=== PATIENT | male | born 1945 | race Caucasian/White ===

== ENCOUNTER 2021-05-19 10:48 | Emergency (ER) | payer MEDICARE ==
--- NOTE | 2021-05-19 11:34 | ED Physician Documentation ---
History of Present Illness - Stated complaint Stated Complaint: LT SHOULDER INJ - Chief complaint Chief Complaint: Ext Problem - History obtained from History obtained from: Patient - History of Present Illness Timing: Today Pain level max: 8 Pain level now: 5 - Additonal information Additional information: Patient is a 76-year-old male who states he has chronic left-sided shoulder pain and rotator cuff "tendinitis". He states that over the past few days has become worse and states this morning when he tried to put on his shirt his left shoulder pain increased. He states the pain also radiated towards the left neck. No chest pain. No shortness of breath. Worse with movement, better with rest. Denies any injury. Review of Systems Constitutional: denies: Fever, Chills GI: denies: Vomiting, Diarrhea Skin: denies: Rash Musculoskeletal: denies: Neck pain, Back pain Neurologic: denies: Headache PD PAST MEDICAL HISTORY - Past Medical History Cardiovascular: None, Other (no history of irregular rhythm, CHF, SC) Respiratory: COPD Endocrine/Autoimmune: None HEENT: Chronic hearing loss Musculoskeletal: Osteoarthritis Derm: Herpes zoster, Psoriasis - Past Surgical History Past Surgical History: No - Present Medications Home Medications: Ambulatory Orders Medication Instructions Recorded Confirmed Aspirin EC [Ecotrin] 81 mg PO DAILY 05/19/21 05/19/21 HYDROcod/ACETAM 5/325 [Jefferson 5/325] 1 ea PO Q6H PRN #14 tablet 05/19/21 - Allergies Allergies/Adverse Reactions: Allergies Allergy/AdvReac Type Severity Reaction Status Date / Time No Known Drug Allergies Allergy Verified 05/19/21 11:32 - Social History Does the pt smoke?: No Smoking Status: Never smoker Does the pt drink ETOH?: Yes Does the pt have substance abuse?: No PD ED PE NORMAL - Vitals Vital signs reviewed: Yes - General General: Alert and oriented X 3, No acute distress - HEENT HEENT: Atraumatic, PERRL, Moist mucous membranes - Neck Neck: Supple, no meningeal sign, No bony TTP, No JVD, No bruit - Cardiac Cardiac: RRR - Respiratory Respiratory: No respiratory distress, Clear bilaterally - Abdomen Abdomen: Soft, Non tender, Non distended - Back Back: No spinal TTP - Derm Derm: Warm and dry - Extremities Extremities: Other (Tender to palpation over the left shoulder, limited range of motion secondary to pain, has about 80% of his normal range of motion. Neurovascularly intact. 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, No motor deficit, No sensory deficit, Normal speech Eye Opening: Spontaneous Motor: Obeys Commands Verbal: Oriented GCS Score: 15 - Psych Psych: Normal mood, Normal affect Results - Vitals Vitals: Vital Signs - 24 hr 05/19/21 05/19/21 05/19/21 10:58 11:24 11:43 Temperature 36.4 C L 36.6 C Heart Rate 140 H 125 H 125 H Respiratory 20 19 20 Rate Blood Pressure 153/101 H 148/102 H 135/106 H O2 Saturation 95 95 97 05/19/21 05/19/21 05/19/21 13:00 13:25 14:01 Temperature 36.9 C Heart Rate 111 H 114 H 118 H Respiratory 26 H 16 22 Rate Blood Pressure 136/87 H 116/74 O2 Saturation 95 96 95 Oxygen O2 Source Room air - EKG (time done) 1115 Rate: Rate (enter#) (120) Rhythm: Wide complex tachycardia - Labs Labs: Laboratory Tests 05/19/21 05/19/21 05/19/21 11:20 11:20 11:20 WBC 10.2 RBC 4.95 Hgb 16.0 Hct 48.6 MCV 98.2 H MCH 32.3 H MCHC 32.9 RDW 12.4 Plt Count 270 MPV 9.2 Neut # (Auto) 8.4 H Lymph # (Auto) 1.2 L [place] # (Auto) 0.6 Eos # (Auto) 0.0 Baso # (Auto) 0.0 Absolute Nucleated RBC 0.00 Nucleated RBC % 0.0 Sodium 139 Potassium 3.5 Chloride 104 Carbon Dioxide 23 Anion Gap 12.0 BUN 20 Creatinine 1.0 Estimated GFR (MDRD) 72 L Glucose 188 H Calcium 9.3 Total Bilirubin 1.4 H AST 23 ALT 19 Alkaline Phosphatase 73 Troponin I High Sens 10.9 Total Protein 8.3 H Albumin 4.3 Globulin 4.0 Albumin/Globulin Ratio 1.1 Lipase 27 - Rads (name of study) cxr Radiology: Final report received, EMP read contemporaneously, See rad report (no acute abnormality) L shoulder xray Radiology: Final report received, EMP read contemporaneously, See rad report (no acute abnormality) PD MEDICAL DECISION MAKING - ED course Complexity details: reviewed results, re-evaluated patient, considered differential, d/w patient ED course: No acute findings on laboratory testing, laboratory abnormality or radiographs. Pain well controlled. Placed in a sling for comfort. Likely rotator cuff tendinitis. No ST elevation SC, no aortic dissection, no PE, no tension pneumothorax, no aortic aneurysm patient counseled regarding signs and symptoms for which I believe and urgent re-evaluation would be necessary. Patient with good understanding of and agreement to plan and is comfortable going home at this time This document was made in part using voice recognition software. While efforts are made to proofread this document, sound alike and grammatical errors may occur. Departure - Departure Disposition: 01 Home, Self Care Clinical Impression: Shoulder pain, left Qualifiers: Chronicity: acute Qualified Code(s): M25.512 - Pain in left shoulder Rotator cuff tendinitis Qualifiers: Laterality: left Qualified Code(s): M75.82 - Other shoulder lesions, left shoulder Condition: Good Instructions: ED Tendinitis Rotator Cuff Follow-Up: Jen Packer MD [Primary Care Provider] - Within 1 week Prescriptions: HYDROcod/ACETAM 5/325 [[place] 5/325] 1 ea PO Q6H PRN #14 tablet PRN Reason: Pain Comments: Continue to gently move your shoulder to help with the tendinitis. Continue gentle stretching. He can wear the sling as needed for comfort, but do not stay in the sling more than 12 hours at a time. Follow-up with your doctor within 1 week for repeat evaluation. I am prescribing a short course of narcotic pain medication for you. These are potentially dangerous and addictive medications that should be used carefully. These medications may constipate you. Take an lyjl-pjt-wujyxbw stool softener (docusate) twice daily with plenty of water while taking these medications. If you go 24 hours without a bowel movement, take rrot-cac-fdgomkn miralax, per package instructions. Do not drink or drive while taking these medications. If you received narcotic or sedating medications while in the emergency department, do not drive for 24 hours. Store this medication in a safe, secure place and out of reach of children. It is a violation of federal law to give or sell this medication to another person or to use in a manner other than prescribed. The ED will not refill narcotic prescriptions, including prescriptions lost or s tolen. To dispose of unwanted medications: 1. [facility] at [address] in [place] has a medication drop box. They accept prescription medications (in pi ll form) Monday through Monday 9:00 a.m. to 5:00 p.m. 2. The [facility] [employer] accepts prescription medications (in pill form only) for disposal year round. Call for more information. 3. Contact the [facility] for the next [facility] sponsored prescription drug collection event. , [phone], or [phone]; Discharge Date/Time: 05/19/21 14:27
--- NOTE | 2021-05-19 11:37 | XRAY Report ---
PROCEDURE: Chest 1 View X-Ray INDICATIONS: Chest Pain TECHNIQUE: One view of the chest was acquired. COMPARISON: Chest radiographs dated 04/21/2014 FINDINGS: Surgical changes and devices: None. Lungs and pleura: No pleural effusions or pneumothorax. Chronic lung markings are seen bilaterally. The lungs are mildly hyperinflated. Mediastinum: Mediastinal contours appear normal. Heart size is normal. Bones and chest wall: No suspicious bony lesions. Overlying soft tissues appear unremarkable. IMPRESSION: No acute cardiopulmonary abnormality. Mildly hyperexpanded lungs can be seen in the setting of COPD. Reviewed by: Kirill Hsu MD on 05/19/2021 11:35 AM PDT Approved by: Kirill Hsu MD on 05/19/2021 11:35 AM PDT Station ID: [id number]
[2021-05-19 11:39] LABS: BASOPHILS % (AUTO) 0.4 %; EOSINOPHILS % (AUTO) 0.2 %; HCT - HEMATOCRIT 48.6 % (42.0-52.0); LYMPHOCYTES # (AUTO) 1.2 10^3/uL (1.5-3.5); LYMPHOCYTES % (AUTO) 11.5 %; MEAN CORPUSCULAR HEMOGLOBIN 32.3 pg (27.0-31.0); MEAN CORPUSCULAR HGB CONC 32.9 g/dL (32.0-36.0); MEAN CORPUSCULAR VOLUME 98.2 fL (80.0-94.0); MEAN PLATELET VOLUME 9.2 fL (7.4-11.4); MONOCYTES # (AUTO) 0.6 10^3/uL (0.0-1.0); MONOCYTES % (AUTO) 5.8 %; NEUTROPHILS # (AUTO) 8.4 10^3/uL (1.5-6.6); NEUTROPHILS % (AUTO) 81.6 %; PLT - PLATELET COUNT 270 10^3/uL (130-450); RED BLOOD COUNT 4.95 10^6/uL (4.70-6.10); RED CELL DISTRIBUTION WIDTH 12.4 % (12.0-15.0); WHITE BLOOD COUNT 10.2 x10^3/uL (4.8-10.8)
[2021-05-19 11:51] LABS: ALBUMIN 4.3 g/dL (3.2-5.5); ALBUMIN/GLOBULIN RATIO 1.1 (1.0-2.2); BILIRUBIN,TOTAL 1.4 mg/dL (0.2-1.0); CALCIUM 9.3 mg/dL (8.5-10.3); POTASSIUM 3.5 mmol/L (3.5-5.0); TOTAL PROTEIN 8.3 g/dL (6.7-8.2)
--- NOTE | 2021-05-19 12:24 | XRAY Report ---
PROCEDURE: Shoulder 3 View LT INDICATIONS: L shoulder pain, no known injury TECHNIQUE: 3 views of the shoulder were acquired. COMPARISON: None. FINDINGS: Bones: No acute fractures or dislocations. No suspicious bony lesions. Visualized ribs appear inta ct. Mild acromioclavicular joint osteoarthrosis. Soft tissues: No suspicious soft tissue calcifications. IMPRESSION: No acute osseous abnormality. If there is clinical concern or persistent symptoms, addit ional imaging such as repeat radiographs or advanced imaging (e.g. CT, MRI) may be helpful for furthe r evaluation. Reviewed by: Kirill Hsu MD on 05/19/2021 12:23 PM PDT Approved by: Kirill Hsu MD on 05/19/2021 12:23 PM PDT Station ID: [id number]
[2021-05-19] MEDS ORDERED: KETOROLAC 60 MG/2 ML VIAL IM STA (12:30)
[2021-05-19] MEDS ORDERED: KETOROLAC 30 MG/ML VIAL IVP STA (13:06)
[2021-05-19] MEDS ORDERED: HYDROcod/ACETAM 5/325 MG TABLET PO STA (13:44)
[2021-05-19 14:02] VITALS: BP 116/74
== END 2021-05-19 14:27 | disposition home or self-care (01) ==
LOC: ED 10:48
DX: M25.512 Pain in left shoulder (principal); M77.8 Other enthesopathies, not elsewhere classified
CPT/HCPCS: 36415; 71045; 73030; 80053; 83690; 84484; 85025; 93005; 96372; 96374; 99284; A9270

== ENCOUNTER 2021-08-30 08:34 | Outpatient (CLI) | payer MEDICARE ==
--- NOTE | 2021-08-30 09:37 | XRAY Report ---
PROCEDURE: Clavicle LT INDICATIONS: L CLAVICLE PX TECHNIQUE: 2 views of the clavicle were acquired. COMPARISON: Shoulder radiographs 05/19/2021. FINDINGS: Bones: Osseous destruction is seen involving the medial two thirds of the clavicle with irregular mil dly permeated margins and sclerosis at the distal clavicular shaft. The visualized left first rib is grossly intact. In retrospect, this appears progressed when compared to the radiographs from 05/19/2021 . Soft tissues: No suspicious soft tissue calcifications. IMPRESSION: Osseous destruction involving the medial two thirds of the clavicle is suspicious for an aggressive o sseous lesion, including but not limited to metastatic disease. Recommend further evaluation with lef t clavicle MRI with and without contrast. Reviewed by: Kirill Hsu MD on 08/30/2021 9:35 AM PST Approved by: Kirill Hsu MD on 08/30/2021 9:[address] [facility] Station ID: [id number]
== END 2021-08-30 23:59 ==
LOC: DI.N 08:34
PROVIDERS: ATTEND Physician Assistant
DX: M89.8X1 Other specified disorders of bone, shoulder (principal)

== ENCOUNTER 2021-10-06 07:58 | Outpatient (CLI) | payer MEDICARE ==
[2021-10-06 08:19] LABS: BASOPHILS % (AUTO) 0.4 %; EOSINOPHILS # (AUTO) 0.1 10^3/uL (0.0-0.7); EOSINOPHILS % (AUTO) 0.7 %; HCT - HEMATOCRIT 46.1 % (42.0-52.0); LYMPHOCYTES # (AUTO) 1.7 10^3/uL (1.5-3.5); LYMPHOCYTES % (AUTO) 15.4 %; MEAN CORPUSCULAR HEMOGLOBIN 30.2 pg (27.0-31.0); MEAN CORPUSCULAR HGB CONC 32.5 g/dL (32.0-36.0); MEAN CORPUSCULAR VOLUME 92.9 fL (80.0-94.0); MEAN PLATELET VOLUME 8.8 fL (7.4-11.4); MONOCYTES % (AUTO) 9.7 %; NEUTROPHILS # (AUTO) 7.8 10^3/uL (1.5-6.6); NEUTROPHILS % (AUTO) 73.2 %; PLT - PLATELET COUNT 307 10^3/uL (130-450); RED BLOOD COUNT 4.96 10^6/uL (4.70-6.10); RED CELL DISTRIBUTION WIDTH 13.2 % (12.0-15.0); WHITE BLOOD COUNT 10.7 x10^3/uL (4.8-10.8)
[2021-10-06 08:23] LABS: INR 1.2 (0.8-1.2); PT - PROTHROMBIN TIME 13.1 secs (9.9-12.6)
[2021-10-06 08:30] LABS: PARTIAL THROMBOPLASTIN TIME 31.8 secs (24.9-33.3)
[2021-10-06] MEDS ORDERED: lidocaine 1% 20 ML MDV SUBQ ONE (09:57)
--- NOTE | 2021-10-06 12:07 | Ultrasound Report ---
PROCEDURE: Ultrasound-guided left clavicle soft tissue mass biopsy. INDICATIONS: CLAVICLE MASS TECHNIQUE: The indications, alternatives, benefits, risks, and complications of the procedure were e xplained to the patient. Written informed consent was obtained and placed in the chart. Continuous EKG and hemodynamic monitoring was started by trained personnel. Real-time sonography was utilized to choose the site for percutaneous left clavicle soft tissue mass biopsy. The skin was prepped and draped in the usual sterile fashion. 1% lidocaine was infiltrated down to the site of interest. A 18-gauge coaxial needle was then advanced into the site of interest under direct sonographic visualization. A biopsy apparatus was then utilized, and core biopsies were obtained. The needle was then withdrawn; a bandage was applied to the biopsy site. COMPARISON: MRI chest 09/16/2021. Left clavicle radiographs 08/30/2021, left shoulder radiographs 05/19. FINDINGS: Biopsy site(s): Left clavicle soft tissue mass measuring 8.9 x 8.4 x 6.8 cm. There is internal vascu larity. Needle: Mediasmart Marquee biopsy needle set. Number of passes: 4 Medications: 1% lidocaine for local anaesthesia. Complications: None. Well tolerated. Minimal bleeding. IMPRESSION: Successful targeted ultrasound-guided biopsy of the left clavicle soft tissue mass, with pathology re sults pending. Reviewed by: Michael Cheema MD on 10/06/2021 12:06 PM PST Approved by: Michael Cheema MD on 10/06/2021 12:06 PM PST Station ID: [id number]
== END 2021-10-06 07:59 | disposition home or self-care (01) ==
LOC: LAB 07:58
PROVIDERS: ATTEND Internal Medicine
DX: C79.89 Secondary malignant neoplasm of other specified sites (principal); Z01.812 Encounter for preprocedural laboratory examination; Z79.01 Long term (current) use of anticoagulants; Z79.899 Other long term (current) drug therapy
CPT/HCPCS: 20206; 36415; 85025; 85610; 85730; 88307; 88341; 88342; 88344

== ENCOUNTER 2021-11-15 13:51 | Outpatient (CLI) | payer MEDICARE ==
[2021-11-15 14:16] LABS: CREATININE 0.9 mg/dL (0.6-1.2)
[2021-11-15] MEDS ORDERED: GADOBUTROL 10 MMOL/10 ML VIAL IVP ONE (16:19)
--- NOTE | 2021-11-15 17:14 | MRI Report ---
PROCEDURE: Brain W/WO INDICATIONS: LUNG CA CONTRAST: IV CONTRAST: Gadavist ml: 6.8 TECHNIQUE: Noncontrast axial T1 spin echo, axial T2 fast spin echo, sagittal and axial FLAIR, coronal T2 fast sp in echo, axial gradient echo, axial diffusion and ADC through the brain. After the administration of contrast, axial and coronal T1 spin echo with fat saturation through the brain. COMPARISON: None. FINDINGS: Image quality: Excellent. CSF spaces: Basal cisterns are patent. No extra-axial fluid collections. Ventricles are normal in size and shape. Brain: No midline shift. No intracranial bleeds or masses. No abnormal intracranial enhancement. There is cerebral volume loss for age. There is mild to moderate periventricular white matter chroni c small vessel ischemic change. The brainstem appears normal. Diffusion-weighted images demonstrate no acute ischemic insults. No chronic ischemic insults. Normal intravascular flow voids are presen t. Skull and face: Calvarial marrow is normal in signal. Orbits appear normal. Sinuses: Mild right maxillary sinus mucosal thickening. Paranasal sinuses and mastoids are otherwise clear. IMPRESSION: 1. Age-related volume loss and mild to moderate small vessel ischemic change. 2. Mild chronic sinus disease. 3. No evidence of acute stroke, hemorrhage, or mass. No evidence of metastatic disease. Reviewed by: Kit Turcios MD on 11/15/2021 5:13 PM PST Approved by: Kit Turcios MD on 11/15/2021 5:13 PM PST Station ID: [id number]
== END 2021-11-15 13:52 | disposition home or self-care (01) ==
LOC: LAB 13:51
PROVIDERS: ATTEND Internal Medicine Hematology & Oncology
DX: C34.12 Malignant neoplasm of upper lobe, left bronchus or lung (principal); C79.51 Secondary malignant neoplasm of bone; J32.0 Chronic maxillary sinusitis; I67.82 Cerebral ischemia
CPT/HCPCS: 36415; 82565

== ENCOUNTER 2021-12-10 10:00 | Outpatient (CLI) | payer MEDICARE ==
--- NOTE | 2021-12-11 18:41 | CONSULTATION NOTE ---
Palliative Care Consultation - Referral Referring Provider: Dr. Christina Spann Time of Visit: Referral setting: Home Referral Reason: Pain of neoplastic origin/Wt. Loss/NSCLC/Goals of care - Information Sources Records reviewed: Previous records reviewed History/Review of Systems obtained from: Patient, Family (daughter Ofe and Chris) Exam limitations: Clinical condition (very [place], mild STM) - History of Present Illness Brief History of Present Illness: This is a 76-year-old gentleman who is very hard of hearing, but presents with non-small cell lung cancer. He actually has had several months of increasing left shoulder pain, originally thought to be tendinitis, was seen in the emergency room and received referral to orthopedist. He had had a shoulder x- ray, that did show the mass, which continued to grow fairly rapidly. He then received a chest MRI, for the left shoulder pain and groin mass that revealed a 8.8 cm mass with osseous destruction the medial portion of the clavicle. This mass does push against his trachea and into his neck area, causing some increased trouble with swallowing. 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 He received a PET scan showing bony mets, bilateral pulmonary mets, hilar mediastinal adenopathies but and negative brain MRI. Palliative care been asked to see patient, has had canceled his appointment for chemo education, he was recommended given his frailty to undergo immunotherapy, but had to cancel it secondary to diarrhea. Patient does understand the seriousness of his illness, he has completed 5 treatments for radiation to the area, and is already experienced some decrease in pain and discomfort but has some overlying radiation changes to the skin, is bright red and tender. He is wanting to try treatment, we did discuss weighing benefits of burdens with each treatment, patient does present with frailty. He has had significant weight loss of 40 to 50 pounds, this is been with decreased appetite, increased difficulty with swallowing, and overall depression at his situation. He has been using the morphine immediate release 15 mg 2-3 times a day, but does find it wears off quickly, is worsening at night and keeps him from sleeping.He has done very little end-of-life planning, we did discuss DPOA, which he will complete, at this point time is identified his daughter Ofe with follow-up Chris, they will confirm this. We also completed a POLST with DN AR/DNI and selective treatments. Patient with pending oncology appointment today, did follow-up with oncologist regarding misunderstanding regarding patient's wishes, that at this point in time he is wanting to explore and follow-up with palliative treatment, palliative care will continue to work with pain management as well as anticipatory guidance and completion of POLST was shared Medical/Surgical History - Past Medical History Cardiovascular: reports: Atrial fibrillation Respiratory: reports: Asthma, COPD, Shortness of breath, Other (Lung CA) Neuro: None Endocrine/Autoimmune: reports: Type 2 diabetes GI: reports: None : reports: None HEENT: reports: Chronic hearing loss Psych: reports: Depression, Anxiety Musculoskeletal: reports: Osteoarthritis, Fatigue Derm: reports: Herpes zoster, Psoriasis MRSA Hx?: No - Substance History Use: Uses substance without health or social issues: Tobacco (hx), Alcohol (hasn't for a few days) Social History - Living Situation Living arrangement: At home Living Situation: Alone, With family Support System: Patient is , his ex- last year. He is supported by his son who lives in [place] and it is his home that he is living in, had brought him here about 8 years ago to care for he and his mother. His mother ended up in [place] and dying there in the last year. He is cared for by his son Chris, who lives in [place], who had been keeping tabs on him as well as now his daughter Ofe from [place], is here to care for him at least for the next month and possibly the duration depending on the outcome of treatment and his decline. Family History - Family History Family History: Mother: (55 anuerysm), Father: , CAD (dad 60 0f chf;mother cad), Sister: Medications/Allergies - Medications Home Medications: Ambulatory Orders Medication Instructions Recorded Confirmed Aspirin EC [Ecotrin] 81 mg PO DAILY 05/19/21 12/11/21 Morphine ER [Morphine Sulfate ER] 15 mg PO BID 10/18/21 12/11/21 Morphine Ir [Ms Ir] 15 mg PO Q4HR PRN 12/11/21 12/11/21 Senna [Senokot] 8.6 mg PO BID PRN 12/11/21 12/11/21 - Allergies Allergies/Adverse Reactions: Allergies Allergy/AdvReac Type Severity Reaction Status Date / Time No Known Drug Allergies Allergy Verified 05/19/21 11:32 Review of Systems - Constitutional Constitutional: reports: Fatigue (persistent; worse with radiation), Weakness, Night sweats, Weight loss (40 + pounds) - Ears, Nose & Throat Ears, Nose & Throat: reports: Hearing loss, Nasal congestion, Dry mouth - Cardiovascular Cardiovascular: reports: Irregular heart rate, Palpitations, Lightheadedness, Exertional dyspnea, Decr. exercise tolerance. denies: Chest pain - Respiratory Respiratory: reports: Cough, SOB with exertion. denies: SOB at rest - Gastrointestinal Gastrointestinal: reports: Constipation (alternating with diarrhea as trying to adjust meds), Poor appetite, Early satiety, Other (some difficulty with swallowing). denies: Nausea - Musculoskeletal Musculoskeletal: reports: Stiffness, Limited range of motion (poor neck rotation with mass) - Integumentary Integumentary: reports: Other (large mass with redness/brusing from radiation and tumor) - Neurological Neurological: reports: General weakness, Dizziness, Memory problems (mild), Abnormal gait - Psychiatric Psychiatric: reports: Depression, Anxiety - Endocrine Endocrine: reports: Intolerance to cold - Hematologic/Lymphatic Hematologic/Lymph: reports: Anemia (12.9), Bruising. denies: Recurrent infections - All Other Systems All Other Systems: reports: Reviewed and negative Physical Exam - Vital Signs Temperature: 97.1 C Pulse Rate: 96 Respiratory Rate: 18 O2 Saturation: 96 (ra @ rest) Blood Pressure: 110/62 - Physical Exam General Appearance: positive: Alert, Moderate distress, Anxious, Cachetic Eyes Bilateral: positive: Normal inspection, No scleral icterus Neck: positive: Trachea midline Cardiovascular: positive: Regular rate & rhythm, Tachycardia Respiratory: positive: Diminished throughout Abdomen: positive: Non-tender, Soft Skin: positive: Pallor, Other (large reddened/inflammed mass of left clavicle abutting his neck; feels impacting swallowing;) Extremities: positive: No pedal edema Neurologic/Psychiatric: positive: Oriented x3, Mood/affect nml, Flat affect Palliative Care - POLST Patient has POLST: Yes POLST Status: DNR, Selective Treatment Pain: Pain improved, Severity (7/10 left clavicle ; worse with movement or trying to sleep; feels may have decreased with radiation) Tiredness/Fatigue: Moderate (4-6) Drowsiness/Sedation: Mild (1-3) Nausea: None Anorexia: Moderate (4-6), Weight loss Dyspnea: Moderate (4-6) Depression: Moderate (4-6) Anxiety: Moderate (4-6) Feelings of wellbeing/Perceived Quality of Life: Poor, Worsening Sleep: Sleeps poorly Constipation: Yes, Opoid induced, Unmanaged Performance Status: Patient has had declining functional status, this is both related to muscle loss and wasting, as well as shortness of breath. Patient does have increased pain with any kind of activity of the left arm, worsening trouble with swallowing, and has with worsening cancer continued to become more weak, has rolling walker and talking about getting a wheelchair. Discussed patient as possible, to continue to be as active as current condition allows. - Palliative Care Discussion: Patient has been having a rapid decline over several weeks to months, most acutely over the last few days. He does have support now, his daughters they are helping overseeing his meals, intake, encouraging fluids and both daughter and son are advocating for appropriate medical care assisting with transportation, and are here to participate in conversation regarding goals of care. Patient does understand his disease is terminal, that treatment is palliative in nature. He reports he is not afraid of dying, but is more than willing to give treatment a try. We did discuss the need for moving forward with education, and treatment, can follow-up with oncology today, but can weigh benefits and burdens of each treatment cycle as it comes up. Patient is needing to go address issues of frailty and poorly controlled pain. Patient does not have any end-of-life planning documents, reports he has few assets. He is living in home provided by his son. Patient may benefit from [place] application, as may need more hands-on care later. Counseling provided regarding the continuum of care, we did complete a POLST with DN AR/DNI and selective treatments, patient is looking at completing her starting treatment, would treat reversible conditions, but end-of-life would like to be at home. Counseling provided regarding hospice. Patient does need to identify DPOA, had talked about having Ofe Banda his daughter since she is here [phone] and if she is not available his son Chris Bnada [phone]. 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 Patient is pending initiation of pembrolizumab every 3 weeks, with treatment intent of palliative. Palliative care providing support for pain and symptom management, anticipatory guidance, and assistance with coordination of care. Recommendations/Counseling Done: 1. Pain of neoplastic origin. Patient's pain is poorly controlled, patient has received radiation with hope for some improvement. Patient though will confirm continue to have persistent pain most likely, will titrate long-acting slowly up to accommodate improvements with pain with radiation. Will initiate MS Contin 15 mg extended release twice daily, will continue to use breakthrough pain medication 50 mg immediate release as needed. Counseling provided regarding long-acting and short acting, encouraged to use adequate short acting medications to be able to better aids counselor for long-acting medication needs. 2. Constipation. Patient with alternating constipation and diarrhea, instructed will continue to need medication for constipation secondary to opioid induced. Instructed would recommend 1 to 2 tablets daily, with titration to effect. Goal for regular BM daily. 3. Weight loss. Patient with increased difficulty with swallowing, does eat 2 meals a day. They are using soft foods, encouraged to use instant breakfast and Ensure for supplementation, did speak with dietitian and recommended she meet with him if possible. Concern with patient for dehydration, encouraged fluids particularly with calories. 4. Anxiety. This is multifactorial, has been a difficult course over the last several weeks. Did complete radiation, please to be done with that. Now has pending immunotherapy, counseling provided regarding the positives with this. As well as patient's ability to say yes or no pending each appointment and treatment. 5. Advanced care planning. Counseling provided regarding the continuum of care, palliative versus hospice, versus hospice transition when no longer aligned with goals of care or treatment no longer possible. POLST is completed with DN AR/selective treatments with goals to focus on quality of life, receive cancer treatment and treat reversible conditions but at end-of-life a comfortable and respectful at home with hospice. They will complete the DPOA, and consider financial power of regulatory attorney as well. 75 minutes with greater than 50% of this done in counseling regarding pain and symptom management, role of palliative care, coordination of care with oncology team, and anticipatory guidance.
== END 2021-12-10 10:01 | disposition home or self-care (01) ==
LOC: PC 10:00
PROVIDERS: ATTEND Nurse Practitioner Adult Health
DX: Z51.5 Encounter for palliative care (principal); G89.3 Neoplasm related pain (acute) (chronic); R63.4 Abnormal weight loss; R13.10 Dysphagia, unspecified; R63.0 Anorexia; R19.7 Diarrhea, unspecified; K59.03 Drug induced constipation; T40.2X5A Adverse effect of other opioids, initial encounter; F41.9 Anxiety disorder, unspecified; C34.90 Malignant neoplasm of unspecified part of unspecified bronchus or lung; C79.51 Secondary malignant neoplasm of bone; Z79.891 Long term (current) use of opiate analgesic; Z79.899 Other long term (current) drug therapy; Z92.3 Personal history of irradiation; Z66 Do not resuscitate
CPT/HCPCS: 99345

== ENCOUNTER 2021-12-15 10:40 | Outpatient (CLI) | payer MEDICARE ==
--- NOTE | 2021-12-15 16:38 | CONSULTATION NOTE ---
Palliative Care Follow Up - Referral Referring Provider: Dr. Spann Time of Visit: [phone] Referral setting: Home Referral Reason: Pain of neoplastic origin/Oral Candidiasis/Met Lung CA with neck/bone mass - Information Sources Records reviewed: Previous records reviewed History/Review of Systems obtained from: Patient, Family (daughter Ofe and son Chris present) Exam limitations: Clinical condition (very [place];) - History of Present Illness Update Brief HPI Update: SEE HPI 12/10 This is a 76-year-old gentleman who is very hard of hearing, presents with non-small cell lung cancer with a large left shoulder mass and bone mass it reveals 8.8 cm, with osseous destruction. He has received 5 rounds of chemo and radiation, does appear smaller from even when I saw him on Monday. It does push against his trachea and neck area causing some trouble with swallowing. He is complaining of a sore throat today, on examination it shows that he has oral candidiasis. Unfortunately had initiated MS Contin 15 mg twice daily, patient does not have a Medicare D coverage, and it was delayed and picking it up. They did get generic, but was still significant hardship for them. He is to start that today. Further teaching regarding long-acting versus short acting, and also recommendations to daughter and son for supervision regarding this. Patient is not currently drinking, he complains of weakness, he is not painful at rest but is significantly painful with any kind of movement. He said he appears quite thin and cachectic, though reports he is drinking some. He has some dizziness when he is up. He ran out of pain pills a couple days ago, suspect there may be some withdrawals involved as well. Patient has had a core biopsy on the mass that showed poorly differentiated adenocarcinoma of lung origin with The PET scan showing bony mets, bilateral pulmonary mets, hilar mediastinal adenopathies but did have a negative brain MRI. He did get his immunotherapy teaching on Monday, this was somewhat overwhelming for everyone, but he does feel like he is wanting to go forward with this. He does have significant frailty. He has had significant weight loss but is working on drinking Ensure and trying to increase his calories so this is somewhat discouraged by his dry mouth and sore throat. Past Medical History: Atrial fib, asthma, COPD, type 2 diabetes, chronic hearing loss, depression, anxiety, osteoarthritis, fatigue, herpes zoster, psoriasis, history of tobacco use, alcohol misuse has not used for several days. Social History - Living Situation Living arrangement: At home Living Situation: Alone Support System: Daughter from [place] he is here to provide caregiving, at least for another month. Patient is . He has a son who lives in [place], it is the son's home that patient is living him he brought him here about 8 years ago to care for him and his grandmother.There is concerns about long-term management of patient's care needs. Medications/Allergies - Medications Home Medications: Ambulatory Orders Medication Instructions Recorded Confirmed Morphine ER [Morphine Sulfate ER] 15 mg PO BID 10/18/21 12/15/21 Morphine Ir [Ms Ir] 15 mg PO Q4HR PRN 12/11/21 12/15/21 Senna [Senokot] 8.6 mg PO BID PRN 12/11/21 12/15/21 Ondansetron Odt [Zofran Odt] 4 mg TL Q6H PRN #30 tab 12/13/21 12/15/21 Fluticasone [Flonase] 1 spray ERIN DAILY 12/15/21 12/15/21 Nystatin [Mycostatin] 5 ml PO QID MDD 10 days 12/15/21 12/15/21 polyethylene glycoL 3350 [Miralax] 17 gm PO DAILY 12/15/21 12/15/21 - Allergies Allergies/Adverse Reactions: Allergies Allergy/AdvReac Type Severity Reaction Status Date / Time No Known Drug Allergies Allergy Verified 05/19/21 11:32 Review of Systems - Constitutional Constitutional: reports: Fatigue (worsening), Weakness, Poor appetite, Weight loss - Eyes Eyes: reports: Vision loss - Ears, Nose & Throat Ears, Nose & Throat: reports: Hearing loss, Nasal congestion, Mouth lesions, Dry mouth - Cardiovascular Cardiovascular: reports: Irregular heart rate - Respiratory Respiratory: reports: SOB with exertion. denies: SOB at rest - Gastrointestinal Gastrointestinal: reports: Constipation (reports hard stool), Bloating, Poor appetite, Early satiety - Musculoskeletal Musculoskeletal: reports: Muscle aches, Stiffness, Muscle weakness - Integumentary Integumentary: reports: Dryness - Neurological Neurological: reports: General weakness, Numbness, Memory problems - Psychiatric Psychiatric: reports: Depression, Anxiety - Hematologic/Lymphatic Hematologic/Lymph: reports: Anemia - All Other Systems All Other Systems: reports: Reviewed and negative (limited) Physical Exam - Vital Signs Temperature: 98.3 C Pulse Rate: 100 Respiratory Rate: 18 O2 Saturation: 92 Blood Pressure: 140/72 - Physical Exam General Appearance: positive: Alert, Mild distress (difficulty with movement secondary to pain) Eyes Bilateral: positive: Normal inspection, No scleral icterus ENT: positive: Oral lesions (white patches/tongue dry) Neck: positive: Trachea midline Cardiovascular: positive: Irregular, Tachycardia Respiratory: positive: No respiratory distress, Breath sounds nml Abdomen: positive: Soft, Tenderness Skin: positive: Pallor, Dryness, Other (mass over left clavicle size of orange; appears less) Extremities: positive: No pedal edema, Other (patient in bed;) Neurologic/Psychiatric: positive: Oriented x3, Mood/affect nml, Weakness, Flat affect Palliative Care - POLST Patient has POLST: Yes POLST Status: DNR, Selective Treatment Pain: Location (left shoulder; bilateral leg pain) Feelings of wellbeing/Perceived Quality of Life: Poor, Worsening Sleep: Variable sleep pattern Constipation: Yes Performance Status: Patient is curled up in bed in back bedroom, is quite crowded in space. Does have a recliner in there. Encouraged to get up in recliner at least for meals, encouraged more frequent ambulation as feels up to it. Patient's pain is poorly controlled, increase pain control may help. He does report he was able to shower though it did take him a long period of time. - Palliative Care Discussion: Daughter feels patient was somewhat overwhelmed with review immunotherapy on Monday, though does seem committed to continuing to try it. He does understand the seriousness of his illness, but is willing to trial for benefits, and less it becomes burdensome. Patient has limited financial resources, does not have Medicare D. We will continue to work with coupons and recommend CREDIT ASSISTANT come work with patient for signing up or Medicaid. He does have POLST with DN AR/DNI and selective treatments completed at last visit. Results - Lab Results Lab results reviewed: Yes Impression and Recommendations - Palliative Care Impression: This is a 76-year-old gentleman who is not in good health, is struggling with new diagnosis of lung cancer with bony mets. Has completed radiation, hoping for good response. Patient has not been taking pain meds, will initiate pain regimen today. Patient having increased sore throat and mouth discomfort, on examination does have oral candidiasis. Continues to be fragile and concern for long-term indications and management. Palliative care to provide support and symptom management as well as anticipatory guidance. Recommendations/Counseling Done: 1. Of neoplastic origin. Unfortunately patient ran out of pain meds, they had not picked them up. We discussed and the need to not to be starting and stopping pain meds, important for him to be comfortable. Patient laying on bed and immobile for several days secondary to pain. Is to initiate MS Contin 15 mg twice daily today, instructed to keep to 15 mg immediate release at bedside, Ofe is to track. Patient can have up to 4-day, if using more will increase MS Contin to 3 times daily dosing. Verbalized understanding from patient and daughter, Chris son there to reinforce information. 2. Oral candidiasis. I suspect this is related to his sore throat and mouth pain. The patient did have radiation area could still have some radiation side effects as it has had some improvement. We will go ahead and order nystatin 5 mils 4 times daily for 10 days. Instructions given regarding swish and swallow and no follow-up fluid until after 15 minutes. It works "like Lysol" on contact. Verbalized understanding. 3. Generalized weakness. This is multifactorial, suspect patient is somewhat dehydrated. Encouraged to push fluids as well as calories. Encouraged to be up in the chair and ambulate as tolerated. Patient will do better with better pain control, this was reinforced. 4. Metastatic lung CA. Patient is pending immunotherapy, is to receive that this Monday. Was somewhat overwhelmed with information, will continue to monitor along with patient weighing benefits and burdens moving forward. 5. Constipation. Patient is describing hard stool, instructed to obtain MiraLAX, has been using DOS but most likely is not going to be effective for opioid-induced constipation. Instructed to start MiraLAX 17 g daily in 4 ounces of water, and continue with senna 1 tab twice daily. Can hold for diarrhea. 6. Advanced care planning. Patient does have POLST with DNR/DNI as selective treatments. They are to complete a DPOA, will collect at next visit. Patient needs to follow-up for pursuit of medication cost support, most likely would benefit from Medicaid application. Continue to provide anticipatory guidance and coordination of care through them pending treatment plan. 50 minutes with greater than 50% of this done with counseling regarding pain and symptom management, coordination of care with oncology, and instruction on anticipatory guidance for treatment and disease trajectory.
== END 2021-12-15 10:41 | disposition home or self-care (01) ==
LOC: PC 10:40
PROVIDERS: ATTEND Nurse Practitioner Adult Health
DX: Z51.5 Encounter for palliative care (principal); G89.3 Neoplasm related pain (acute) (chronic); C80.1 Malignant (primary) neoplasm, unspecified; C78.00 Secondary malignant neoplasm of unspecified lung; B37.0 Candidal stomatitis; R53.1 Weakness; Z79.899 Other long term (current) drug therapy; K59.03 Drug induced constipation; T40.2X5A Adverse effect of other opioids, initial encounter; Z66 Do not resuscitate
CPT/HCPCS: 99349

== ENCOUNTER 2021-12-28 10:30 | Outpatient (CLI) | payer MEDICARE ==
--- NOTE | 2021-12-28 20:29 | CONSULTATION NOTE ---
Palliative Care Follow Up - Referral Referring Provider: Dr. Spann Time of Visit: 4988-5189 Referral setting: Home Referral Reason: Pain of neoplastic origin/Oral candidiasis/Met Lung CA with mass clavicle - Information Sources Records reviewed: Previous records reviewed History/Review of Systems obtained from: Patient, Family (gibran Thakur present) Exam limitations: Clinical condition (Very [place]) - History of Present Illness Update Brief HPI Update: This is a 76-year-old gentleman who is very hard of hearing, who presents with non-small cell lung cancer with large left shoulder/bone mass, with known osseous destruction. He has received 5 rounds of radiation, it continues to appear to shrink in size, reports has some improvement in ability to swallow, has been needing to focus on soft or pured foods. When I saw him on 12/15 he did have significant oral candidiasis, this is improved but is not resolved despite a course of nystatin for 7 days. He has been mostly bedbound, up to the bathroom only. He has received 1 round of pembrolizumab, and is due next week. Patient's pain is well controlled on MS Contin 15 mg twice daily, only needing occasional oxycodone for breakthrough pain. Patient is currently not drinking, still is having difficulty with mobility of his left side and arm. He is quite cachectic, unable to weigh since there is no scale. He is asking to be given "a month" to get stronger and wants to defer treatment. Past Medical History: Atrial fib, asthma, COPD, type 2 diabetes, chronic hearing loss, depression, anxiety, osteoarthritis, herpes zoster, psoriasis, history of tobacco use, alcohol use disorder, currently not drinking. Social History - Living Situation Living arrangement: At home Living Situation: With family Support System: Gibran Thakur from [place], has moved in to provide caregiving for at least another month or 2. Patient is . He has been somewhat isolated, was brought here 8 years ago by his son to provide increased support for him and his grandmother. There is concerns about long-term management of patient's care needs. Medications/Allergies - Medications Home Medications: Ambulatory Orders Medication Instructions Recorded Confirmed Morphine ER [Morphine Sulfate ER] 15 mg PO BID 10/18/21 12/29/21 Morphine Ir [Ms Ir] 15 mg PO Q4HR PRN 12/11/21 12/29/21 Senna [Senokot] 8.6 mg PO BID PRN 12/11/21 12/29/21 Ondansetron Odt [Zofran Odt] 4 mg TL Q6H PRN #30 tab 12/13/21 12/29/21 Fluticasone [Flonase] 1 spray ERIN DAILY 12/15/21 12/29/21 polyethylene glycoL 3350 [Miralax] 17 gm PO DAILY 12/15/21 12/29/21 Fluconazole [Diflucan] 100 mg PO ONCE MDD repeat in 3 days 12/29/21 12/29/21 Mirtazapine 7.5 mg PO QPM MDD increase to 15 12/29/21 12/29/21 mg in one week - Allergies Allergies/Adverse Reactions: Allergies Allergy/AdvReac Type Severity Reaction Status Date / Time No Known Drug Allergies Allergy Verified 05/19/21 11:32 Review of Systems - Constitutional Constitutional: reports: Fatigue (has stayed mostly in bed), Weakness, Poor appetite, Weight loss (unable to weigh; but quite cachetic) - Eyes Eyes: reports: Vision loss - Ears, Nose & Throat Ears, Nose & Throat: reports: Hearing loss, Nasal congestion, Mouth lesions (improved but not clear), Dry mouth - Cardiovascular Cardiovascular: reports: Irregular heart rate - Respiratory Respiratory: reports: SOB with exertion. denies: SOB at rest - Gastrointestinal Gastrointestinal: reports: Bloating, Poor appetite, Early satiety. denies: Constipation (improved) - Genitourinary Genitourinary: reports: Frequency, Urgency - Musculoskeletal Musculoskeletal: reports: Muscle aches, Stiffness, Muscle weakness, Other (has stayed mostly in bed this last week) - Integumentary Integumentary: reports: Dryness - Neurological Neurological: reports: General weakness, Numbness, Memory problems (daughter reports intermittent confusion) - Psychiatric Psychiatric: reports: Depression, Anxiety - Endocrine Endocrine: reports: Diabetes type 2 - Hematologic/Lymphatic Hematologic/Lymph: reports: Anemia - All Other Systems All Other Systems: reports: Reviewed and negative (limited) Physical Exam - Vital Signs Temperature: 98.0 C Pulse Rate: 96 Respiratory Rate: 18 O2 Saturation: 97 Blood Pressure: 142/72 - Physical Exam General Appearance: positive: No acute distress, Alert, Cachetic Eyes Bilateral: positive: Normal inspection, No scleral icterus ENT: positive: Oral lesions (residual candidiasis noted; had completed most of nystatin with some improvement but not resolution) Neck: positive: Trachea midline Cardiovascular: positive: Irregular Respiratory: positive: No respiratory distress, Diminished throughout, Wheezes (scattered expiratory) Abdomen: positive: Soft, Tenderness Skin: positive: Pallor, Dryness, Other (mass over left clavicle size of orange; appears less than last visit) Extremities: positive: No pedal edema, Other (patient in bed; difficulty getting sitting to standing still unable to use left side related to pain) Neurologic/Psychiatric: positive: Oriented x3, Mood/affect nml, Weakness, Flat affect Palliative Care - POLST Patient has POLST: Yes POLST Status: DNR, Selective Treatment Pain: Pain improved, Location (left shoulder/arm;), Severity (0/10 at rest; severe with movement) Tiredness/Fatigue: Moderate (4-6) Drowsiness/Sedation: Moderate (4-6) Nausea: None Anorexia: Moderate (4-6), Weight loss Dyspnea: Moderate (4-6) Depression: Moderate (4-6) Anxiety: Moderate (4-6) Feelings of wellbeing/Perceived Quality of Life: Fair, Acceptable, Improved Sleep: Sleep improved Constipation: Yes, Opoid induced, Managed Performance Status: Patient is tucked in his back room, in his bed. It is quite low to the floor, has difficulty getting from sitting to standing secondary to left sided pain and limited motion. Reports is able to get up and down to the bathroom, but has not ventured out beyond this. Is eating his meals in bed. He does have a recliner in his room, had been encouraged to be. Patient "wants to get stronger", we discussed what this would look like, including spending less than 50% of his day in bed. Patient has not bathed, has been very reluctant to engage in any activities or ADLs. He is able to feed himself. - Palliative Care Discussion: Patient with very poor insight into the seriousness of his illness, we discussed again in the context of wanting to "wait a month" on his immunotherapy regarding how treatment and progression of his cancer works. He has had some improvement with radiation with the shrinkage of the mass, and pain, and has had one immunotherapy treatment with little side effect. We discussed further treatment to be effective, needs to follow the treatment plan and timing, patient does not want to proceed unless he is "stronger". We spent much time discussing how he would need to engage to be able to get stronger, and given his significant weight loss, deconditioning, and currently inactivity most likely would not improve. After much discussion patient in agreement to defer treatment by 1 week, if does not improve or get "stronger", can be congruent with patient's goals and transition to hospice. If patient improves, will continue to follow with palliative care. Impression and Recommendations - Palliative Care Impression: This is a 76-year-old gentleman who is not at baseline in good health, struggling with new diagnosis of non-small cell lung cancer with metastatic disease. Patient's continue to benefit from results of radiation of mass of left clavicular area, with improvement in swallowing, pain, and decrease in size. Patient's pain much better controlled on long-acting morphine 15 mg twice daily. Patient still has some residual oral candidiasis, but improved. Claudia meneses continues to have frailty, appears to have lost more weight, unable to confirm with scales. Patient wanting to defer treatment, counseling provided today regarding goals and expected trajectory. Palliative care continue to provide support for pain and symptom management, psychosocial support as well as anticipatory guidance. Recommendations/Counseling Done: 1. Pain of neoplastic origin. Patient initiated MS Contin 15 mg twice daily, feels like his pain is well controlled, does still have significant pain with any kind of movement or stress on that left shoulder area, but 0 out of 10 at rest. Has not needed anything for breakthrough pain, though encouraged to take before up and moving or showering. Patient continues to lay in bed and be immobile, is getting up to the bathroom only. No changes to pain regimen today. 2. Oral candidiasis. Patient did complete nystatin 7 to 10 days, with some improvement. Patient still has some residual, will go ahead and treat with Diflucan 100 mg and repeat in 3 days, with hope for improvement. Does report it is less painful and easier to eat. We will continue to follow. 4. Anorexia. Patient reports no appetite, has been eating small amounts, pushing fluids. Unfortunately is eating back in the back room in bed. We will go ahead and initiate mirtazapine 7.5 mg x 1 week and increase to 15 mg if tole rated. Patient is not a candidate for steroids secondary to immunotherapy, hopefully this will also help his depression. Patient in agreement to give it a try. Ordered from [facility]. 3. Generalized weakness. This is multifactorial, including ongoing weight loss, muscle wasting, cachexia, and deconditioning. Counseling provided for progressive activity, encouraged to be up in recliner at least for meals, and in living room to engage both socially but also improve activity tolerance. Instructed to use walker and instructed on progressive ambulation. Patient "wants to get stronger". Discussed unless patient increase calories and activity, most likely not going to meet this goal, in the context of his progressive cancer. Patient verbalized understanding, and agreement if continues to deteriorate, will consider transitioning to hospice. 4. Constipation. Patient is using MiraLAX daily, with good results. Also has senna if needed for constipation. 5. Metastatic lung CA. Patient has received immunotherapy, remains reluctant to return next week, discussed need to be adherent to treatment schedule, not realistic till "wait till stronger. After much discussion compromise made to delay a week, if patient is feeling better will continue with immunotherapy, if continues to decline and mostly bedbound, will transition to hospice. Patient with poor insight into the seriousness of his illness, counseling provided. 6. Advanced care planning. Patient does have POLST with DNR/DNI and selective treatments. They are still pending a DPOA. Patient most likely would benefit from Medicaid application, will send referral to Senior services. Family and supportive patient wants to withdraw from treatment, and transition to hospice. Continue to provide anticipatory guidance and coordination of care with pending treatment plan 50 minutes with greater than 50% of this done in counseling regarding pain and symptom management, coordination of care with oncology, anticipatory guidance.
== END 2021-12-28 10:31 | disposition home or self-care (01) ==
LOC: PC 10:30
PROVIDERS: ATTEND Nurse Practitioner Adult Health
DX: Z51.5 Encounter for palliative care (principal); C34.90 Malignant neoplasm of unspecified part of unspecified bronchus or lung; G89.3 Neoplasm related pain (acute) (chronic); C79.51 Secondary malignant neoplasm of bone; B37.0 Candidal stomatitis; Z92.3 Personal history of irradiation; J44.9 Chronic obstructive pulmonary disease, unspecified; Z87.891 Personal history of nicotine dependence; E11.9 Type 2 diabetes mellitus without complications; R53.1 Weakness; F32.A Depression, unspecified; F41.9 Anxiety disorder, unspecified; Z66 Do not resuscitate; R63.0 Anorexia; K59.00 Constipation, unspecified
CPT/HCPCS: 99349

== ENCOUNTER 2022-01-11 14:30 | Outpatient (CLI) | payer MEDICARE ==
--- NOTE | 2022-01-11 16:15 | CONSULTATION NOTE ---
Palliative Care Follow Up - Referral Referring Provider: Dr. Christina Spann Time of Visit: 7330-3730 Referral setting: Home Referral Reason: Pain of neoplastic origin/Met Lung CA with bone mets/Oral candiasis - Information Sources Records reviewed: Previous records reviewed History/Review of Systems obtained from: Patient, Family (daughter Ofe) Exam limitations: Clinical condition (very [place]) - History of Present Illness Update Brief HPI Update: This is a 76-year-old gentleman who is very hard of hearing, who presents with non-small lung cancer with large left shoulder/bone mass with known osseous destruction. He had received 5 rounds of radiation treatment, and it has resolved the pain, shrunk in size, has improved some mobility though is improved. He is able to swallow, is able to eat more mechanical soft diet, and has had increased appetite. I did treat him for oral candidiasis, this is since resolved and improved. He had been mostly bedbound, he has been up walking around with his walker and tolerating it better. He is still taking frequent naps, and complains of persistent fatigue but continues to improve on a daily basis. He had received 1 round of pembrolizumab, but canceled his treatment this last week. Patient's pain had been well controlled on MS Contin 50 mg twice a day, he reports his pain has continue to improve and has naturally weaned himself off without any residual. He is sleeping okay, he is still quite cachectic, we had agreed to a "month" to get stronger but now wants to defer treatment indefinitely. Patient had originally presented after several months of increasing left shoulder pain, originally thought to be tendinitis, had received a referral to Ortho. When he had received a shoulder x-ray this did show the mass which continue to grow fairly rapidly when he finally received his chest MRI, the mass had revealed 8.8 cm with osseous destruction in the medial portion of the clavicle. At that time the mass did pushed against his trach into the neck area, and causing increased trouble with swallowing. 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 His PET scan showed bony mets, bilateral pulmonary mets, hilar mediastinal adenopathies and a negative brain MRI. Past Medical History: Atrial fibs, asthma, COPD, type 2 diabetes, chronic hearing loss, depression, anxiety, osteoarthritis, herpes zoster, psoriasis, history of tobacco abuse, alcohol use disorder currently not drinking Social History - Living Situation Living arrangement: At home Living Situation: With family Support System: Patient had been living by himself, he had been somewhat isolated. He was brought up 8 years ago by his son to provide increased support for him and his grandmother, patient's mother had been on hospice in 2006, so is familiar with hospice services. Daughter Ofe from [place], had moved in to [facility], this is been difficult for her though she is quite committed. She does have underlying chronic pain and anxiety issues. Patient is . He has another son Chris and his have been supportive, though they are not close, it is Chris's home he is living in. Patient has limited financial resources, including no Medicare D, so has been resistant to medications. Medications/Allergies - Medications Home Medications: Ambulatory Orders Medication Instructions Recorded Confirmed Morphine Ir [Ms Ir] 15 mg PO Q4HR PRN 12/11/21 01/11/22 Senna [Senokot] 8.6 mg PO BID PRN 12/11/21 01/11/22 Ondansetron Odt [Zofran Odt] 4 mg TL Q6H PRN #30 tab 12/13/21 01/11/22 Fluticasone [Flonase] 1 spray ERIN DAILY 12/15/21 01/11/22 polyethylene glycoL 3350 [Miralax] 17 gm PO DAILY PRN 12/15/21 01/11/22 Mirtazapine 15 mg PO QPM 12/29/21 01/11/22 Loratadine/Pseudoephedrine 1 tab PO DAILY 01/11/22 01/11/22 [Claritin-D 24 Hour Tablet] - Allergies Allergies/Adverse Reactions: Allergies Allergy/AdvReac Type Severity Reaction Status Date / Time No Known Drug Allergies Allergy Verified 05/19/21 11:32 Review of Systems - Constitutional Constitutional: reports: Fatigue (improved), Weakness, Weight loss (improved intake/no scales) - Eyes Eyes: reports: Vision loss - Ears, Nose & Throat Ears, Nose & Throat: reports: Hearing loss, Nasal congestion (worsening; had tried benadryl without relief). denies: Dry mouth - Cardiovascular Cardiovascular: reports: Irregular heart rate - Respiratory Respiratory: reports: SOB with exertion. denies: Cough, SOB at rest - Gastrointestinal Gastrointestinal: reports: Early satiety, Good appetite (improved). denies: Constipation (improved) - Genitourinary Genitourinary: reports: Frequency, Urgency - Musculoskeletal Musculoskeletal: reports: Muscle aches, Stiffness, Muscle weakness, Assistive devices (using walker for ambulation; doing "exercises") - Integumentary Integumentary: reports: Dryness - Neurological Neurological: reports: General weakness, Numbness, Memory problems (daughter reports intermittent confusion) - Psychiatric Psychiatric: denies: Depression, Anxiety - Endocrine Endocrine: reports: Diabetes type 2 - Hematologic/Lymphatic Hematologic/Lymph: reports: Anemia - All Other Systems All Other Systems: reports: Reviewed and negative (limited) Physical Exam - Vital Signs Temperature: 97.1 C Pulse Rate: 100 Respiratory Rate: 18 O2 Saturation: 95 (ra @ rest) Blood Pressure: 108/64 - Physical Exam General Appearance: positive: No acute distress, Alert, Cachetic Eyes Bilateral: positive: Normal inspection, No scleral icterus ENT: negative: Oral lesions Neck: positive: Trachea midline Cardiovascular: positive: Irregular Respiratory: positive: No respiratory distress, Diminished throughout, Wheezes (scattered expiratory) Abdomen: positive: Soft Skin: positive: Pallor, Dryness, Other (mass over left clavicle size of orange; appears less than last visit over each visit-no longer protruding; angiogeneisis less) Extremities: positive: No pedal edema, Other (patient in bed; difficulty getting sitting to standing still unable to use left side related to pain) Neurologic/Psychiatric: positive: Oriented x3, Mood/affect nml, Weakness, Flat affect Palliative Care - POLST Patient has POLST: Yes POLST Status: DNR, Selective Treatment Pain: Pain improved, Location (left chest and shoulder), Severity (0/10), Comment (still limits ROM) Tiredness/Fatigue: Moderate (4-6) Drowsiness/Sedation: Mild (1-3) Nausea: None Anorexia: Mild (1-3) (improved; eating more) Dyspnea: Moderate (4-6) Depression: Mild (1-3) Anxiety: Mild (1-3) Feelings of wellbeing/Perceived Quality of Life: Good, Acceptable, Improved Sleep: Sleeps well Constipation: No, Managed Performance Status: Patient's functional status is improved fairly dramatically., Patient had been bedbound last time I seen him only able to get up and walk short distances. He has been "exercising" and ambulating longer distances with his walker. He reports he does exercises when he is sitting he has "nothing else to do". His goals to get stronger, continue to supervise projects. He has been independent in his ADLs. Daughter reports he does sleep quite a bit, and tires easily, only can tolerate standing for short periods of time. - Palliative Care Discussion: Patient reports he does not want to continue treatment, he feels like he just wants to "get better". This does not include treatment though does attribute his improvement in pain and decrease in his mass to the treatment he has received. He is just letting "God" and himself steer his next course. We did talk if he continued to improve and wanted to consider revoking and going back on treatment that was an option, though this does not seem of much interest to him. Daughter is in agreement the patient is quite happy just tooling around in the house, spending time with his family, and doing his projects. Family is quite supportive of patient's goals, in agreement with transition to hospice. They have had experience with hospice with his mother in 2006. He is somewhat concerned about having too many visitors, he is somewhat of an introvert as well as Ofe is, we did discuss most likely would be able to temper minimal visits at the beginning, but would be available if things got more difficult. He was in agreement then for moving forward with admit to hospice. I had shared my biggest concern was that they have access to 24/7 call for any signs or symptoms of decline are uncontrolled symptoms. Patient does not want to be hospitalized or go to the ED. Follow-up call done with son Chris and his Melissa, for further questions. They are supportive of his transition to hospice, and answered questions accordingly. Impression and Recommendations - Palliative Care Impression: This is a 76-year-old gentleman who has non-small cell lung cancer with metastatic disease. Patient had benefit greatly from radiation treatment with improvement of mass, and reports minimal pain in his left clavicular area. He reports also improvement in swallowing, oral candidiasis has resolved, and patient does appear much more comfortable. Patient has weaned himself off his opioids, and is tolerating what minimal discomfort he has without problems. Patient is quite frail, and cachectic. He has been working to build himself up, both with activity and eating. Patient at this time does not want to pursue treatment, did receive 1 treatment of pembrolizumab. Palliative care provided support for pain and symptom management, psychosocial support as well as anticipatory guidance, agreement today for an alignment with goals to transition to hospice. Recommendations/Counseling Done: 1. Pain of neoplastic origin. Patient had been on MS Contin 15 mg twice daily, has been able to titrate himself off. He still has MS 15 IR available for breakthrough pain if needed. He is able to move though does have limited range of motion in that left side shoulder area. He does find this tolerable though. Patient has been up and ambulating with his walker, is feeling better overall. Will discontinue his long-acting morphine, with IR available. 2. Oral candidiasis. Patient did complete his Diflucan, on examination it has resolved today. This is much more comfortable for him as far as eating and drinking, also reports swallowing improved. 3. Anorexia. Patient reports appetite continues to improve, had initiated mirtazapine 15 mg. Patient had not been a candidate for steroids secondary to immunotherapy, can add dexamethasone now for pain control if needed in the future as well as for appetite. Does appear to have good response from mirtazapine, is eating several times a day, and feeling stronger. 4. Generalized weakness. This is multifactorial, including ongoing weight loss, muscle wasting cachexia and deconditioning. Patient has been progressing his activity, he has been up in the recliner in living room. He has been overseeing "supervising" work and projects around the house. Daughter reports he is back into tinkering back to his baseline, his goals really are to get stronger and is working on this. 5. Constipation. Patient with decrease in opioids, has not needed bowel meds reports is going without any trouble. 6. Metastatic lung cancer. Patient received 1 dose of immunotherapy, has declined for further treatments. He did benefit greatly from radiation to his bone lesion on his clavicle, with improvement of pain and shrinkage of mass. It continues to improve with each visit. Patient perceives he is going to continue to get better, we did discuss some the trajectory of his illness, but certainly if he is eating and drinking and doing more activity I expect he will be better for a period of time anyway. 7. Rhinitis. Patient's has long-term had rhinitis, has tried various [id number] Benadryl, has not used anything but and natural nasal spray. Encouraged to initiate daily Flonase 1 squirt each nostril, and Claritin 24-hour extended release to see if can dry up nasal drip. This causes increased cough for patient and does not like his "drippy nose". 8. Advance care planning. Patient does have a POLST with DN AR/DNI and selective treatments, he does not have a DPOA completed they do have the paperwork. Patient most likely would benefit from a Medicaid application, have not been contacted yet by Senior services, will have soaker soda worker follow-up. Family is supportive with what ever goals patient aligns with. Will transition to hospice. Referral sent. Notified oncology patient no longer continue with treatment, continue to provide anticipatory guidance. 45 minutes with greater than 50% was spent in counseling regarding symptom masood gement, hospice services, anticipatory guidance regarding disease trajectory and expectations, and coordination of care with hospice and oncology.
== END 2022-01-11 14:31 | disposition home or self-care (01) ==
LOC: PC 14:30
PROVIDERS: ATTEND Nurse Practitioner Adult Health
DX: Z51.5 Encounter for palliative care (principal); G89.3 Neoplasm related pain (acute) (chronic); C79.51 Secondary malignant neoplasm of bone; R53.83 Other fatigue; R63.0 Anorexia; R53.1 Weakness; J31.0 Chronic rhinitis; R64 Cachexia; C34.90 Malignant neoplasm of unspecified part of unspecified bronchus or lung; Z79.899 Other long term (current) drug therapy; Z79.891 Long term (current) use of opiate analgesic; Z87.891 Personal history of nicotine dependence; Z59.89 Other problems related to housing and economic circumstances; Z92.3 Personal history of irradiation; Z66 Do not resuscitate
CPT/HCPCS: 99349